=== PATIENT | female | born 1945 | race Asian ===

== ENCOUNTER → 2025-08-31 07:04 | Outpatient (REF) | payer OTHER, SELFPAY | LOC: MRI 3T 07:04 | PROVIDERS: ATTENDING PHYSICIAN Psychiatry & Neurology Behavioral Neurology & Neuropsychiatry; FAMILY PHYSICIAN Internal Medicine | DX: G30.9 Alzheimer's disease, unspecified (principal) | CPT/HCPCS: 70551 ==